=== PATIENT | male | born 1990 | race Caucasian/White ===

== ENCOUNTER 2017-10-17 20:30 | Emergency (ER) | payer OTHER, SELFPAY ==
[2017-10-17 20:30] VITALS: BP 136/80; PULSE 69; RESP 18; TEMP 36.4; O2SAT 99; BMI 29.8
[2017-10-17] MEDS: 0.9% Normal Saline 1,000 ML 1000 ML IV (21:16)
[2017-10-17] MEDS: Ondansetron 4 MG/2 ML Vial IV (21:16)
[2017-10-17] MEDS: Morphine 4 MG/ML Syringe IV ×2 (21:17→22:31)
[2017-10-17 21:20] LABS: Bacteria 0 SEEN /hpf (None Seen); Mucous, Urine 0 SEEN /hpf (<or=2+); Red Blood Cells-Urine 0 SEEN /hpf (0-5); Squamous Epithelial Cells - UA 0 SEEN /hpf (0-5); White Blood Cells 0 SEEN /hpf (0-5)
[2017-10-17 21:26] LABS: Color, Urine Yellow (Yellow); Glucose, Dipstick Normal (Normal); Ketone-Dipstick Negative (Negative); Leukocyte Esterase-Dipstick 25 /ul (Negative); Nitrite-Dipstick Negative (Negative); Occult Blood-Urine Negative /ul (Negative); Protein-Dipstick Negative (Negative); Urine Bilirubin Dipstick Negative (Negative); Urine Clarity Clear (Clear); Urine Urobilinogen Normal (Normal)
[2017-10-17 21:50] LABS: Anion Gap 9 (5-15); BUN 7 mg/dL (7-18); BUN/Creat Ratio 6.2 RATIO (10-20); Calcium,Total 8.8 mg/dL (8.5-10.1); Chloride 107 mmol/L (98-107); Creatinine, Serum 1.12 mg/dL (0.70-1.30); EST Glomerular Filtration Rate 83 mL/min (>60); Est Glom Filt Rate - Afr Amer 100 mL/min (>60); Estimated Creatinine Clearance 107.78 ml/min; Glucose 84 mg/dL (74-106); Potassium 3.3 mmol/L (3.5-5.1); Sodium Level 141 mmol/L (136-145)
[2017-10-17 21:59] LABS: Absolute Lymphocyte Count 2.82 X10^3/ul (0.83-4.51); Absolute Neutrophil Count 2.1 X10^3/uL (2.0-7.7); Basophil# 0.02 X10^3/uL; Basophil% 0.4 % (0-1); Eosinophil# 0.11 X10^3/uL; Hematocrit 42.9 % (40-54); Lymphocyte # 2.82 X10^3/ul (4.0); Lymphocyte % 51.1 % (19-41); Mean Corpuscular Volume 94.9 fL (80-94); Mean Platelet Vol. 8.9 fl (6.2-12.0); Monocyte# 0.45 X10^3/uL; Monocyte% 8.2 % (0-10); Neutrophil # 2.12 X10^3/uL (2.7-7.7); Neutrophil % 38.3 % (47-70); Platelet Count 184 K/mm3 (150-450); RBC Distribution Width SD 40.9 fl (35.1-43.9); Red Blood Count 4.52 M/mm3 (4.6-6.2); White Blood Count 5.5 K/mm3 (4.4-11.0)
[2017-10-17 22:03] LABS: Hemoglobin 15.4 g/dl (13.0-16.5); Mean Corp Hgb Conc 35.9 g/gl (32-36); Mean Corpuscular Hgb 34.1 pg (27.0-32.0); POSITIVE COUNT NO; POSITIVE DIFFERENTIAL NO; POSITIVE MORPHOLOGY NO
--- NOTE | 2017-10-17 22:06 | CT_ITS ---
CT/Abdomen/Pelvis without Cont IMPRESSION: No acute findings in the abdomen or pelvis. Specifically there is no evidence of acute appendicitis or diverticulitis. No hydronephrosis and no kidney stones Electronically Signed: Dyllan Montero, at 22:39 EDT Tel , Service support ,
[2017-10-17] MEDS: Ceftriaxone 1 GM/50 ML BAG IV (22:24)
--- NOTE | 2017-10-17 23:09 | ED.VISSUMM ---
- ER Visit Summary Date of Service: 10/17/17 Chief Complaint: Urethral pain History of Present Illness: The patient is a 27 M presents to the emergency department with pain in his urethra. Patient states over the past 24 hours, he said waxing and waning pain. He states that when he urinates, the pain gets worse. His history of kidney stone but states this feels different. He denies any discharge from the penis. He denies any inability to urinate. He does admit to some intermittent suprapubic cramping. The pain does not radiate to his back. He is currently sexually active single partner but denies any exposure to sexually transmitted disease. Physical Examination: Vital signs reviewed General: Well-nourished, well-developed Head: Normocephalic, atraumatic Eyes: Pupils equal and reactive, extraocular muscles intact Neck, supple, no lymphadenopathy Heart: Regular rate and rhythm Respiratory: No distress, clear bilaterally Abdomen: Soft, nontender, nondistended, no peritoneal signs Back: Nontender Extremities: Nontender, no edema, no cords Skin: Normal color no rash Neuro: Alert and oriented, no focal or lateralizing deficits Test Results: [] Emergency Department Course and Treatment: exam was done. Patient's testicles are normal. Cremasteric is preserved. There is no evidence of torsion. There is no discharge from the meatus. There is no lymphadenopathy. Urine was obtained which showed some leukoesterase but was otherwise unremarkable. With the patient did have recurrence of pain. I did obtain a CT flank which showed no acute process. At this time, I do feel that this is likely an infectious urethritis. The patient was given IV Rocephin will be kept on oral Cipro. He was counseled on concerning symptoms and reasons to return. The patient be discharged home. Treatment Plan: [] Disposition: Discharge Impression: Urethritis This note was generated with [employer] dictation software. It may contain incorrect words, spelling, and punctuation that were not noted in review of the chart prior to signing ED Disposition - Plan for ED Patient: Chief Complaint: Complaint Instructions: ED Urethritis Infec Vs Inflam Male Prescriptions: Hydrocodone Bitart/Apap 5-325 [[place] 5MG-325MG] 1 tab PO Q6H PRN PRN 3 Days #10 tab PRN Reason: Pain Phenazopyridine HCl [Pyridium] 200 mg PO BID PRN PRN #10 tab PRN Reason: Pain Ciprofloxacin [Cipro] 500 mg PO BID #14 tab Referrals: [facility] Doctor,Out of [Primary Care Provider] -
[2017-10-17 23:30] VITALS: BP 95/60; PULSE 79; RESP 18; O2SAT 96
[2017-10-18] MEDS: HYDROcodone Bitartrate/Apap 5/325 Tablet PO
== END 2017-10-18 01:00 | disposition home or self-care (01) ==
PROVIDERS: Emergency Provider Emergency Medicine
DX: N34.2 Other urethritis (principal)
CPT/HCPCS: 74176; 80048; 81001; 85025; 96361; 96365; 96366; 96374; 96375; 99284; J7030; J7050; A4216; J2405